=== PATIENT | female | born 1945 | race Caucasian/White ===

== ENCOUNTER 2018-12-24 10:51 | Emergency (ER) | payer MEDICARE, BC ==
[2018-12-24 11:29] VITALS: BP 123/80
--- NOTE | 2018-12-24 12:37 | XR ---
EXAMINATION TYPE: XR hand complete LT DATE OF EXAM: 12/24/2018 COMPARISON: NONE HISTORY: Pain TECHNIQUE: Three views are submitted. FINDINGS: The osseous structures are intact. Arthropathy of the first carpal metacarpal and there is no acute f racture or dislocation. IMPRESSION: 1. No definite acute fracture or dislocation if symptoms persist, follow-up study in 7 to 10 days wo uld be suggested 2. Arthropathy of the first metacarpal carpal. 3. Diffuse osteopenia
--- NOTE | 2018-12-24 13:06 | ED ---
Skin/Abscess/FB HPI - General Chief complaint: Skin/Abscess/Foreign Body Stated complaint: wrist lac, infection Time Seen by Provider: 12/24/18 11:54 Source: patient Mode of arrival: ambulatory Limitations: no limitations - History of Present Illness Initial comments: Patient is a 73-year-old female presents emergency Department with wanting a another opinion regarding a healing laceration on her left thumb 7 days. Patient states she cut her left thumb on a tree branch 7 days ago and received approximately 10 sutures to the palmar aspect of her left thumb. Patient states she had increase in redness and swelling and was seen a total of 4 other times since the initial injury and has received a tetanus vaccine, antibiotic injections, as well as being on clindamycin for the last 5 days. Patient states there is still redness around the room and drainage and she is concerned that something else needs to be done. Patient denies any fever, chills, nausea, vomiting, abdominal pain. Patient states she has full range of motion of her left thumb. No other complaints at this time. - Related Data Home Medications Medication Instructions Recorded Confirmed ALPRAZolam [Xanax] 0.25 mg PO DAILY PRN 12/24/18 12/24/18 Cetirizine HCl [Zyrtec] 10 mg PO DAILY 12/24/18 12/24/18 Clindamycin HCl 300 mg PO TID 12/24/18 12/24/18 EPINEPHrine (Auto Inject) [Epipen] 0.3 mg IM ONCE PRN 12/24/18 12/24/18 Escitalopram [Lexapro] 10 mg PO BID 12/24/18 12/24/18 Zolpidem Tartrate [Ambien] 5 mg PO HS PRN 12/24/18 12/24/18 buPROPion [Wellbutrin] 100 mg PO BID 12/24/18 12/24/18 cycloSPORINE 0.05% OPHTH SOLN 1 applicator BOTH EYES Q12H 12/24/18 12/24/18 [Restasis] diphenhydrAMINE HCL [Benadryl] 25 mg PO HS PRN 12/24/18 12/24/18 predniSONE 10 mg PO DAILY PRN 12/24/18 12/24/18 Allergies Allergy/AdvReac Type Severity Reaction Status Date / Time hydrocodone Allergy Anaphylaxis Verified 12/24/18 11:48 latex Allergy Rash/Hives Verified 12/24/18 11:48 melon Allergy Rash/Hives Verified 12/24/18 11:48 shellfish derived [Shellfish] Allergy Anaphylaxis Verified 12/24/18 11:48 strawberry Allergy Rash/Hives Verified 12/24/18 11:48 tomato Allergy Rash/Hives Verified 12/24/18 11:48 Review of Systems ROS Statement: Those systems with pertinent positive or pertinent negative responses have been documented in the HPI. ROS Other: All systems not noted in ROS Statement are negative. Past Medical History Additional Past Medical History / Comment(s): skin CA History of Any Multi-Drug Resistant Organisms: None Reported Additional Past Surgical History / Comment(s): cyst removal Past Psychological History: No Psychological Hx Reported, Anxiety, Depression Smoking Status: Never smoker Past Alcohol Use History: Occasional Past Drug Use History: None Reported General Exam - General Exam Comments Initial Comments: GENERAL: Well-appearing, well-nourished and in no acute distress. HEAD: Atraumatic, normocephalic. EYES: Pupils equal round and reactive to light, extraocular movements intact, sclera anicteric, conjunctiva are normal. ENT: TMs normal, nares patent, oropharynx clear without exudates. Moist mucous membranes. NECK: Normal range of motion, supple without lymphadenopathy or JVD. LUNGS: Breath sounds clear to auscultation bilaterally and equal. No wheezes rales or rhonchi. HEART: Regular rate and rhythm without murmurs, rubs or gallops. ABDOMEN: Soft, nontender, normoactive bowel sounds. No guarding, no rebound. No masses appreciated. : Deferred EXTREMITIES: Normal range of motion, no pitting or edema. No clubbing or cyanosis. NEUROLOGICAL: Cranial nerves II through XII grossly intact. Normal speech, normal gait. PSYCH: Normal mood, normal affect. SKIN: Warm, Dry, normal turgor, no rashes. Patient has a healing laceration, L- shaped, on the palmar aspect of her left thumb. There is some erythema, small amount of drainage from the wound. There is no erythema extending out from the wound itself. Very mild tenderness to palpation of the wound. Patient has full range of motion of left thumb. Limitations: no limitations Course Vital Signs 12/24/18 12/24/18 11:24 13:12 Temperature 98.0 F 97.9 F Pulse Rate 78 70 Respiratory 18 16 Rate Blood Pressure 123/80 123/80 O2 Sat by Pulse 96 100 Oximetry Medical Decision Making - Medical Decision Making Patient is a 73-year-old female with complaints of redness from a healing laceration on her left palm. Patient states she had sutures placed one week ago. Patient has been seen a total of 4 times last week for same complaint. Patient has been given Rocephin and is currently on day 5 of Cipro. On exam patient has very mild erythema around the wound. There is some mild drainage from the wound. Sutures will be removed in another 3-4 days. Patient will continue with Cipro. No other changes to her medications at this time. Return parameters were discussed with the patient she verbalized understanding. Patient is stable for discharge. Case discussed with Dr. Noonan. Disposition Clinical Impression: Laceration of left hand Disposition: HOME SELF-CARE Condition: Stable Instructions (If sedation given, give patient instructions): Care For Your Stitches (ED) Additional Instructions: Please return to the Emergency Department if symptoms worsen or any other concerns. Have sutures removed and 3-4 more days. Continue with clindamycin as discussed. Is patient prescribed a controlled substance at d/c from ED?: No Referrals: None,Stated [Primary Care Provider] - 1-2 days Shruti Danielle MD [REFERRING] - 1-2 days
[2018-12-24 13:14] VITALS: PULSE 70; RESP 16; TEMP 97.9
== END 2018-12-24 13:14 | disposition home or self-care (01) ==
LOC: EC 10:51
DX: S61.012A Laceration without foreign body of left thumb without damage to nail, initial encounter (principal); F41.9 Anxiety disorder, unspecified; F32.9 Major depressive disorder, single episode, unspecified; Z85.828 Personal history of other malignant neoplasm of skin; Z79.899 Other long term (current) drug therapy; Z88.5 Allergy status to narcotic agent; Z91.040 Latex allergy status; Z91.018 Allergy to other foods; Z91.013 Allergy to seafood
CPT/HCPCS: 99283